=== PATIENT | female | born 1960 | race Caucasian/White ===

== ENCOUNTER 2024-03-09 10:40 | Emergency (ER) | payer BC, OTHER ==
[2024-03-09] MEDS ORDERED: Naloxone 0.4 MG/ML SDV IVPUSH PRN (11:35)
[2024-03-09] MEDS: Morphine 4 MG/ML Syringe IVPUSH ONE (11:39)
[2024-03-09 12:39] LABS: BASOPHILS ABSOLUTE AUTO 0.03 K/uL (0.00-0.10); BASOPHILS PERCENT AUTO 0.4 % (0.1-1.3); EOSINOPHILS PERCENT AUTO 1.2 % (0.0-5.4); HEMATOCRIT 42.4 % (34.3-46.0); HEMOGLOBIN 14.2 g/dL (11.2-15.5); IMMATURE GRAN ABSOLUTE AUTO 0.03 K/uL (0.00-0.23); IMMATURE GRAN PERCENT AUTO 0.4 % (0.0-0.7); LYMPHOCYTES ABSOLUTE AUTO 1.62 K/uL (0.8-3.3); LYMPHOCYTES PERCENT AUTO 19.1 % (11.4-47.7); MEAN CORPUSCULAR HEMOGLOBIN 30.3 pg (31.6-35.5); MEAN CORPUSCULAR HGB CONC 33.5 g/dL (31.6-35.5); MEAN CORPUSCULAR VOLUME 90.6 fL (81.4-99.0); MONOCYTES ABSOLUTE AUTO 0.47 K/uL (0.20-0.90); MONOCYTES PERCENT AUTO 5.5 % (3.3-12.6); NEUTROPHILS ABSOLUTE AUTO 6.23 K/uL (1.0-7.6); NEUTROPHILS PERCENT AUTO 73.4 % (40.0-78.1); PLATELET COUNT,PLT 164 K/uL (130-375); RED BLOOD CELL COUNT 4.68 M/uL (3.77-5.24); WHITE BLOOD CELL COUNT,WBC 8.5 K/uL (3.2-11.0)
[2024-03-09] MEDS: Morphine 2 MG/ML SYRINGE IVPUSH ONE ×2 (13:01→13:45)
[2024-03-09] MEDS ORDERED: Sodium Chloride 0.9% 1,000 ML IV ONE (16:55)
[2024-03-09] MEDS: Sodium Chloride 0.9% 1,000 ML IV SCH (16:57)
== END 2024-03-09 16:45 | disposition home or self-care (01) ==
LOC: JP.ED 10:40
DX: S42.201A Unspecified fracture of upper end of right humerus, initial encounter for closed fracture (principal); I10 Essential (primary) hypertension; K21.9 Gastro-esophageal reflux disease without esophagitis; E03.9 Hypothyroidism, unspecified; Z88.8 Allergy status to other drugs, medicaments and biological substances; Z91.040 Latex allergy status; Z88.5 Allergy status to narcotic agent; Z88.6 Allergy status to analgesic agent; Z79.899 Other long term (current) drug therapy; Z90.49 Acquired absence of other specified parts of digestive tract; W01.0XXA Fall on same level from slipping, tripping and stumbling without subsequent striking against object, initial encounter
CPT/HCPCS: 36415; 71101; 73030; 73562; 85025; 96374; 96376; 99283; J2270; J7030